=== PATIENT | male | born 1960 | race Caucasian/White ===

== ENCOUNTER 2018-03-28 11:12 | Day surgery (SDC) | payer OTHER ==
[~2018-03-28 11:12] MED LIST: CEFAZOLIN 2 GM/50 ML (PMX) 50 ML IVPB
[2018-03-28] MEDS ORDERED: IOHEXOL 300MG/ML 30 ML BTL (12:17)
[2018-03-28] MEDS ORDERED: ONDANSETRON 4 MG INJ IV (12:30)
[2018-03-28] MEDS ORDERED: MEPERIDINE 25 MG INJ IV (12:30)
[2018-03-28] MEDS ORDERED: FENTAnyl 50 MCG/ML VIAL IV ×3 (12:30)
[2018-03-28] MEDS ORDERED: HYDROmorphONE 1 MG/5 ML IV SYRINGE IV ×3 (12:30)
[2018-03-28] MEDS ORDERED: DIPHENHYDRAMINE 50 MG INJ IV (12:30)
[2018-03-28] MEDS ORDERED: OXYCODONE/ACETAMINOPHEN (5/325) TAB PO (12:30)
[2018-03-28] MEDS ORDERED: PROCHLORPERAZINE 10 MG INJ IV (12:30)
[2018-03-28] MEDS ORDERED: MIDAZOLAM 1 MG/ML 2 ML INJ (12:30)
[2018-03-28] MEDS ORDERED: PROPOFOL 20 ML (12:30)
[2018-03-28] MEDS ORDERED: FENTAnyl 50 MCG/ML VIAL ×2 (12:49→13:38)
[2018-03-28] MEDS ORDERED: ONDANSETRON 4 MG INJ (12:59)
[2018-03-28] MEDS ORDERED: DEXAMETHASONE 4 MG/ML 1 ML INJ (12:59)
[2018-03-28] MEDS ORDERED: FAMOTIDINE 20 MG INJ (12:59)
[2018-03-28] MEDS ORDERED: CEFAZOLIN 1 GM INJ (12:59)
[2018-03-28] MEDS ORDERED: HYDROCODONE/APAP (5/325) TAB PO (14:00)
== END 2018-03-28 15:50 | disposition home or self-care (01) ==
LOC: SDS 11:12
DX: N20.1 Calculus of ureter (principal); E78.5 Hyperlipidemia, unspecified; I10 Essential (primary) hypertension
CPT/HCPCS: 52356; 71045; 74430; 82962; 88300